=== PATIENT | male | born 1935 | race Caucasian/White ===

== ENCOUNTER 2021-05-12 13:40 | Inpatient (IN) ==
[2021-05-12] MEDS ORDERED: NS 0.9% 1000 ml BAG 1,000 ML IV ONE (18:36)
[2021-05-12] MEDS ORDERED: Sotalol 120 mg TAB (NF) PO ONE (19:38)
[2021-05-12 21:28] LABS: ABS Lymphocytes 0.9 10^3/ul (1.0-4.8); ABS Monocytes 0.7 10^3/ul (0-0.8); ABS Neutrophils 7.5 10^3/ul (1.5-7.7); Eosinophil % 0.2 %; Hematocrit 32 % (42-52); Hemoglobin 10.6 g/dL (14.0-18.0); Lymphocyte % 10.2 %; Mean Corpuscular HGB Conc 33 g/dL (31-36); Mean Corpuscular Hemoglobin 32 pg (27-31); Mean Corpuscular Volume 96 fL (80-94); Platelet Count 199 10^3/uL (150-450); Red Blood Count 3.34 10^6 /uL (4.18-5.48); Red Cell Distribution Width 14 % (10-15); White Blood Count 9.2 10^3/uL (3.5-10.8)
[2021-05-12 21:43] LABS: Albumin 3.6 g/dL (3.2-5.2); Albumin/Globulin Ratio 1.1 (1-3); C Reactive Protein 9.63 mg/L (<8.01); Calcium 8.6 mg/dL (8.6-10.3); EGFR African American 67.8 (>60); EGFR Non-African American 56.1 (>60); Globulin 3.2 g/dL (2-4); Potassium 4.2 mmol/L (3.5-5.0); Total Bilirubin 0.8 mg/dL (0.2-1.0); Total Protein 6.8 g/dL (6.4-8.9)
[2021-05-12 21:44] LABS: Troponin I 0.01 ng/mL (<0.03)
[2021-05-13 01:08] LABS: Troponin I 0.03 ng/mL (<0.03)
[2021-05-13] MEDS ORDERED: Morphine 4 MG/ML VIAL (1 ml) IV ONE (02:10)
[2021-05-13] MEDS ORDERED: Ondansetron 4 mg VIAL 2 MG/ML 2 ml VIAL IV PRN (05:20)
[2021-05-13 05:28] LABS: Troponin I 0.01 ng/mL (<0.03)
[2021-05-13 06:19] LABS: Albumin 2.7 g/dL (3.2-5.2); Albumin/Globulin Ratio 1.2 (1-3); Calcium 6.6 mg/dL (8.6-10.3); EGFR African American 98.5 (>60); EGFR Non-African American 81.4 (>60); Globulin 2.3 g/dL (2-4); Potassium 3.3 mmol/L (3.5-5.0); Total Bilirubin 0.6 mg/dL (0.2-1.0)
[2021-05-13 06:25] LABS: ABS Lymphocytes 1.1 10^3/ul (1.0-4.8); ABS Monocytes 0.6 10^3/ul (0-0.8); ABS Neutrophils 6.2 10^3/ul (1.5-7.7); Eosinophil % 0.1 %; Hematocrit 30 % (42-52); Hemoglobin 10.1 g/dL (14.0-18.0); Mean Corpuscular HGB Conc 33 g/dL (31-36); Mean Corpuscular Hemoglobin 32 pg (27-31); Mean Corpuscular Volume 95 fL (80-94); Mean Platelet Volume 8.2 fL (7.4-10.4); Platelet Count 184 10^3/uL (150-450); Red Blood Count 3.18 10^6 /uL (4.18-5.48); Red Cell Distribution Width 14 % (10-15); White Blood Count 7.9 10^3/uL (3.5-10.8)
[2021-05-13] MEDS: Potassium Chlor 20 meq TAB.ER PO SCH (07:09)
[2021-05-13] MEDS: Cholecalciferol (VIT D3) 1,000 unit TAB PO SCH (07:09)
[2021-05-13] MEDS: Polyethylene Glycol 3350 17 GM PACKET PO SCH (07:10)
[2021-05-13] MEDS: TACROLIMUS 0.1% TOPICAL SCH ×2 (08:15→21:13)
[2021-05-13] MEDS ORDERED: Al Hydrox/Mg Hydrox/Simet LIQ 30 ML UDC PO PRN (09:39)
[2021-05-13 15:21] LABS: Magnesium 1.6 mg/dL (1.9-2.7)
[2021-05-13] MEDS ORDERED: Magnesium Sulfate 2 gm BAG 2 GM/50 ML BAG IVPB ONE (18:10)
[2021-05-13] MEDS ORDERED: Potassium Chlor 20 meq TAB.ER PO ONE (18:10)
[2021-05-13] MEDS: Calcium/Vitamin D TAB 250/125 TAB PO SCH (20:07)
[2021-05-14 07:01] LABS: Calcium 8.8 mg/dL (8.6-10.3); EGFR African American 71.2 (>60); EGFR Non-African American 58.8 (>60); Magnesium 1.9 mg/dL (1.9-2.7)
[2021-05-14] MEDS: Cholecalciferol (VIT D3) 1,000 unit TAB PO SCH (08:36)
[2021-05-14] MEDS: Potassium Chlor 20 meq TAB.ER PO SCH (08:37)
[2021-05-14] MEDS: TACROLIMUS 0.1% TOPICAL SCH ×2 (08:44→20:50)
[2021-05-14] MEDS: Polyethylene Glycol 3350 17 GM PACKET PO SCH (08:44)
[2021-05-14 08:51] LABS: ABS Lymphocytes 0.9 10^3/ul (1.0-4.8); ABS Monocytes 0.9 10^3/ul (0-0.8); ABS Neutrophils 6.9 10^3/ul (1.5-7.7); Eosinophil % 0.2 %; Hematocrit 31 % (42-52); Hemoglobin 10.5 g/dL (14.0-18.0); Lymphocyte % 10.3 %; Mean Corpuscular HGB Conc 34 g/dL (31-36); Mean Corpuscular Hemoglobin 32 pg (27-31); Mean Corpuscular Volume 94 fL (80-94); Mean Platelet Volume 7.8 fL (7.4-10.4); Platelet Count 186 10^3/uL (150-450); Red Blood Count 3.25 10^6 /uL (4.18-5.48); Red Cell Distribution Width 14 % (10-15); White Blood Count 8.7 10^3/uL (3.5-10.8)
[2021-05-14 09:14] LABS: C Reactive Protein 20.75 mg/L (<8.01)
[2021-05-14 09:26] LABS: TSH Ultra Thyroid Stim Horm 1.95 mcIU/mL (0.34-5.60)
[2021-05-14 10:21] LABS: Urine Appearance Cloudy; Urine Bilirubin Negative (Negative); Urine Blood 2+ (Negative); Urine Color Yellow; Urine Glucose Negative (Negative); Urine Ketones Negative (Negative); Urine Nitrite Negative (Negative); Urine Protein Negative (Negative); Urine Specific Gravity 1.013 (1.002-1.030); Urine Urobilinogen Negative (Negative)
[2021-05-14 10:34] LABS: Urine Bacteria Absent (Absent); Urine Red Blood Cell 2+(6-10/hpf) (Absent); Urine Squamous Epithelial Cell Present (Absent); Urine White Blood Cell 1+(6-10/hpf) (Absent)
[2021-05-14] MEDS: Calcium/Vitamin D TAB 250/125 TAB PO SCH (20:47)
[2021-05-15 06:05] LABS: Calcium 8.5 mg/dL (8.6-10.3); EGFR African American 75.6 (>60); EGFR Non-African American 62.5 (>60); Magnesium 2.1 mg/dL (1.9-2.7); Potassium 3.8 mmol/L (3.5-5.0)
[2021-05-15 06:46] LABS: ABS Lymphocytes 0.9 10^3/ul (1.0-4.8); ABS Monocytes 0.7 10^3/ul (0-0.8); ABS Neutrophils 5.3 10^3/ul (1.5-7.7); Eosinophil % 0.6 %; Hematocrit 30 % (42-52); Hemoglobin 10.2 g/dL (14.0-18.0); Lymphocyte % 13.5 %; Mean Corpuscular HGB Conc 34 g/dL (31-36); Mean Corpuscular Hemoglobin 32 pg (27-31); Mean Corpuscular Volume 94 fL (80-94); Mean Platelet Volume 8.3 fL (7.4-10.4); Nucleated Red Blood Cells % 0.1; Platelet Count 204 10^3/uL (150-450); Red Blood Count 3.18 10^6 /uL (4.18-5.48); Red Cell Distribution Width 14 % (10-15); White Blood Count 6.9 10^3/uL (3.5-10.8)
[2021-05-15] MEDS: TACROLIMUS 0.1% TOPICAL SCH ×2 (09:17→21:32)
[2021-05-15] MEDS: Potassium Chlor 20 meq TAB.ER PO SCH (09:18)
[2021-05-15] MEDS: Cholecalciferol (VIT D3) 1,000 unit TAB PO SCH (09:18)
[2021-05-15] MEDS: Polyethylene Glycol 3350 17 GM PACKET PO SCH (09:19)
[2021-05-15] MEDS ORDERED: NS 0.9% 1000 ml BAG 500 ML IV ONE (11:45)
[2021-05-15] MEDS ORDERED: Gadoteridol (CONTRAST) 279.3 MG/ML 10 ML IV ONE (13:08)
[2021-05-15 15:05] LABS: Hematocrit 28 % (42-52); Hemoglobin 9.5 g/dL (14.0-18.0)
[2021-05-15] MEDS: Cefepime 1 GM in Dextrose 1 GM/50 ML BAG IV SCH (16:11)
[2021-05-15 16:57] LABS: Folate 10.87 ng/mL (5.90-24.80)
[2021-05-15] MEDS: Calcium/Vitamin D TAB 250/125 TAB PO SCH (21:30)
[2021-05-16] MEDS ORDERED: Lactated Ringers 500 ml BAG 500 ML IV ONE (00:32)
[2021-05-16] MEDS: Cefepime 1 GM in Dextrose 1 GM/50 ML BAG IV SCH ×2 (05:55→17:30)
[2021-05-16 06:16] LABS: ABS Eosinophils 0.1 10^3/ul (0-0.6); ABS Lymphocytes 1.1 10^3/ul (1.0-4.8); ABS Monocytes 0.7 10^3/ul (0-0.8); ABS Neutrophils 5.2 10^3/ul (1.5-7.7); Eosinophil % 1.4 %; Hematocrit 27 % (42-52); Hemoglobin 8.9 g/dL (14.0-18.0); Mean Corpuscular HGB Conc 34 g/dL (31-36); Mean Corpuscular Hemoglobin 32 pg (27-31); Mean Corpuscular Volume 95 fL (80-94); Mean Platelet Volume 7.9 fL (7.4-10.4); Platelet Count 180 10^3/uL (150-450); Red Blood Count 2.81 10^6 /uL (4.18-5.48); Red Cell Distribution Width 14 % (10-15); White Blood Count 7.1 10^3/uL (3.5-10.8)
[2021-05-16 06:32] LABS: Albumin 3.1 g/dL (3.2-5.2); Anion Gap 3 mmol/L (2-11); CO2 Carbon Dioxide 28 mmol/L (22-32); Calcium 8.2 mg/dL (8.6-10.3); Chloride 104 mmol/L (101-111); Potassium 4.2 mmol/L (3.5-5.0); Sodium 135 mmol/L (135-145)
[2021-05-16 06:38] LABS: ALT 17 U/L (7-52); AST 48 U/L (13-39); Albumin/Globulin Ratio 1.2 (1-3); Alkaline Phosphatase 41 U/L (35-149); Blood Urea Nitrogen 30 mg/dL (6-24); EGFR African American 73.3 (>60); EGFR Non-African American 60.6 (>60); Globulin 2.5 g/dL (2-4); Glucose 92 mg/dL (70-100); Total Protein 5.6 g/dL (6.4-8.9)
[2021-05-16] MEDS: Cholecalciferol (VIT D3) 1,000 unit TAB PO SCH (08:04)
[2021-05-16] MEDS: Potassium Chlor 20 meq TAB.ER PO SCH (08:04)
[2021-05-16] MEDS: Polyethylene Glycol 3350 17 GM PACKET PO SCH (08:04)
[2021-05-16] MEDS: TACROLIMUS 0.1% TOPICAL SCH ×2 (08:19→20:21)
[2021-05-16] MEDS ORDERED: NS 0.9% 1000 ml BAG 1,000 ML IV SCH (12:00)
[2021-05-16] MEDS ORDERED: Perflutren Lipid Microsphere 3 ML VIAL ONE (14:40)
[2021-05-16 16:23] LABS: % Iron Saturation 11 % (15-55); Iron 29 ug/dL (50-212); Total Iron Binding Capacity 276 mcg/dL (250-450); Transferrin 197 mg/dL (203-362); Unsaturated Iron Binding < 261 ug/dL
[2021-05-16 17:02] LABS: Ferritin 65.2 ng/mL (24-336)
[2021-05-16] MEDS: Calcium/Vitamin D TAB 250/125 TAB PO SCH (20:21)
[2021-05-16 20:57] LABS: Hematocrit 26 % (42-52); Hemoglobin 8.8 g/dL (14.0-18.0)
[2021-05-17] MEDS: Cefepime 1 GM in Dextrose 1 GM/50 ML BAG IV SCH ×2 (05:24→16:56)
[2021-05-17 07:09] LABS: ABS Eosinophils 0.2 10^3/ul (0-0.6); ABS Lymphocytes 0.7 10^3/ul (1.0-4.8); ABS Monocytes 0.6 10^3/ul (0-0.8); ABS Neutrophils 4.7 10^3/ul (1.5-7.7); Eosinophil % 2.8 %; Hematocrit 25 % (42-52); Hemoglobin 8.6 g/dL (14.0-18.0); Lymphocyte % 11.7 %; Mean Corpuscular HGB Conc 35 g/dL (31-36); Mean Corpuscular Hemoglobin 32 pg (27-31); Mean Corpuscular Volume 94 fL (80-94); Mean Platelet Volume 8.2 fL (7.4-10.4); Platelet Count 184 10^3/uL (150-450); Red Blood Count 2.65 10^6 /uL (4.18-5.48); Red Cell Distribution Width 14 % (10-15); White Blood Count 6.3 10^3/uL (3.5-10.8)
[2021-05-17 07:24] LABS: Calcium 8.1 mg/dL (8.6-10.3); EGFR African American 77.2 (>60); EGFR Non-African American 63.8 (>60); Potassium 4.1 mmol/L (3.5-5.0)
[2021-05-17] MEDS: Cholecalciferol (VIT D3) 1,000 unit TAB PO SCH (07:53)
[2021-05-17] MEDS: Polyethylene Glycol 3350 17 GM PACKET PO SCH (07:57)
[2021-05-17] MEDS: Potassium Chlor 20 meq TAB.ER PO SCH (07:59)
[2021-05-17] MEDS: TACROLIMUS 0.1% TOPICAL SCH (08:44)
[2021-05-17] MEDS: Potassium Chloride LIQUID 20 MEQ/15 ML LIQUID PO SCH (08:44)
[2021-05-17] MEDS ORDERED: NS 0.9% 1000 ml BAG 1,000 ML IV SCH (12:00)
[2021-05-17] MEDS: Calcium/Vitamin D TAB 250/125 TAB PO SCH (19:59)
[2021-05-18] MEDS: TACROLIMUS 0.1% TOPICAL SCH ×2 (00:54→07:52)
[2021-05-18] MEDS: Cefepime 1 GM in Dextrose 1 GM/50 ML BAG IV SCH ×2 (06:09→18:10)
[2021-05-18] MEDS: Polyethylene Glycol 3350 17 GM PACKET PO SCH (07:48)
[2021-05-18] MEDS: Cholecalciferol (VIT D3) 1,000 unit TAB PO SCH (07:49)
[2021-05-18] MEDS: Potassium Chloride LIQUID 20 MEQ/15 ML LIQUID PO SCH (07:50)
[2021-05-18] MEDS ORDERED: NS 0.9% 1000 ml BAG 1,000 ML IV ONE (08:04)
[2021-05-18] MEDS ORDERED: NS 0.9% 1000 ml BAG 1,000 ML IV SCH (10:00)
[2021-05-18] MEDS: Calcium/Vitamin D TAB 250/125 TAB PO SCH (19:30)
[2021-05-19] MEDS: Cefepime 1 GM in Dextrose 1 GM/50 ML BAG IV SCH (05:35)
[2021-05-19 07:44] VITALS: BP 123/54
[2021-05-19] MEDS: Potassium Chloride LIQUID 20 MEQ/15 ML LIQUID PO SCH (09:15)
[2021-05-19] MEDS: Cholecalciferol (VIT D3) 1,000 unit TAB PO SCH (09:16)
[2021-05-19] MEDS: Polyethylene Glycol 3350 17 GM PACKET PO SCH (09:16)
== END 2021-05-19 11:50 | DRG 92 ==
LOC: MED 13:40 → ED 13:40
PROVIDERS: ADMIT Internal Medicine; ATTEND Student in an Organized Health Care Education/Training Program

== ENCOUNTER 2022-08-04 13:17 | Inpatient (IN) ==
[2022-08-04] MEDS ORDERED: BEBTELOVIMAB 175 MG/2 ML VIAL IV ONE (15:30)
[2022-08-04 21:17] LABS: ABS Lymphocytes 0.8 10^3/ul (1.0-4.8); ABS Monocytes 0.7 10^3/ul (0-0.8); ABS Neutrophils 3.4 10^3/ul (1.5-7.7); Eosinophil % 0.2 %; Hematocrit 39 % (42-52); Hemoglobin 12.8 g/dL (14.0-18.0); Lymphocyte % 16.8 %; Mean Corpuscular HGB Conc 32 g/dL (31-36); Mean Corpuscular Hemoglobin 30 pg (27-31); Mean Corpuscular Volume 91 fL (80-94); Mean Platelet Volume 7.7 fL (7.4-10.4); Platelet Count 165 10^3/uL (150-450); Red Blood Count 4.33 10^6 /uL (4.18-5.48); Red Cell Distribution Width 16 % (10-15)
[2022-08-04 21:22] LABS: INR 1.54 (0.89-1.11)
[2022-08-04 21:35] LABS: Albumin 3.5 g/dL (3.2-5.2); C Reactive Protein 50.15 mg/L (<8.01); Calcium 8.3 mg/dL (8.6-10.3); Globulin 3.5 g/dL (2-4); Total Bilirubin 0.5 mg/dL (0.2-1.0); eGFR CKD-EPI 46.2 (>60)
[2022-08-04] MEDS ORDERED: Sotalol 120 mg TAB (NF) PO ONE (22:22)
[2022-08-04 23:26] LABS: High Sensitivity Troponin 1 Hr 19 pg/mL (<20)
[2022-08-05 01:21] LABS: Urine Appearance Cloudy; Urine Bilirubin Negative (Negative); Urine Blood 2+ (Negative); Urine Color Yellow; Urine Glucose Negative (Negative); Urine Ketones Trace (Negative); Urine Nitrite Positive (Negative); Urine Protein 2+(100 mg/dL) (Negative); Urine Specific Gravity 1.016 (1.002-1.030); Urine Urobilinogen Negative (Negative)
[2022-08-05 01:26] LABS: Urine Bacteria 1+ (Absent); Urine Red Blood Cell 3+(>10/hpf) (Absent); Urine White Blood Cell 2+(11-20/hpf) (Absent)
[2022-08-05 06:48] LABS: ABS Neutrophils 4.2 10^3/ul (1.5-7.7); Eosinophil % 0.4 %; Hematocrit 38 % (42-52); Hemoglobin 12.5 g/dL (14.0-18.0); Lymphocyte % 16.4 %; Mean Corpuscular HGB Conc 33 g/dL (31-36); Mean Corpuscular Hemoglobin 30 pg (27-31); Mean Corpuscular Volume 91 fL (80-94); Mean Platelet Volume 7.9 fL (7.4-10.4); Nucleated Red Blood Cells % 0.1; Platelet Count 153 10^3/uL (150-450); Red Blood Count 4.13 10^6 /uL (4.18-5.48); Red Cell Distribution Width 15 % (10-15); White Blood Count 6.3 10^3/uL (3.5-10.8)
[2022-08-05 07:00] LABS: Calcium 7.8 mg/dL (8.6-10.3); Potassium 3.9 mmol/L (3.5-5.0); eGFR CKD-EPI 60.7 (>60)
[2022-08-05] MEDS: Potassium Chlor 20 meq TAB.ER PO SCH (10:41)
[2022-08-06] MEDS: Potassium Chlor 20 meq TAB.ER PO SCH (09:04)
[2022-08-06] MEDS ORDERED: Cefepime 1 GM in Dextrose 1 GM/50 ML BAG IV SCH (15:00)
[2022-08-06] MEDS ORDERED: Cefepime ADVAN 1 GM in NS 0.9% 50 ML 50 ML IVPB SCH (15:00)
[2022-08-06] MEDS ORDERED: Fosfomycin(NF) 3 GM PAK PO SCH (21:00)
[2022-08-07] MEDS: Nitrofurantoin (monohydrate/macrocrystals) 100 mg CAP PO SCH ×2 (00:33→10:35)
[2022-08-07 07:48] VITALS: BP 117/60
[2022-08-07] MEDS: Potassium Chlor 20 meq TAB.ER PO SCH (10:40)
== END 2022-08-07 13:30 | disposition home or self-care (01) | DRG 178 ==
LOC: ED 13:17 → EDHOLD 21:14 → SUATTDRO 21:14 → EDHOLD 22:41 → MED 23:28
PROVIDERS: ADMIT Internal Medicine; ATTEND Hospitalist